=== PATIENT | female | born 1935 | race Hispanic/Latino ===

== ENCOUNTER 2018-12-04 15:35 | Emergency (ER) | payer MEDICARE, BC ==
--- NOTE | 2018-12-04 15:45 | ED PDOC ---
Arrival/HPI - General Time Seen by Provider: 12/04/18 15:37 Historian: Patient - History of Present Illness Narrative History of Present Illness (Text): 12/04/18 15:42 Patient is a 82 year old female whose past medical history includes spinal stenosis, who presents to the ED s/p mechanical fall which occurred prior to arrival. Patient was in the hospital when she tripped and fell. She denies any dizziness prior to and s/p mechanical fall. She also denies any LOC, and has feeling in all her extremities. Patient denies any headache, facial pain, nausea, vomiting, or any other complaints. Time/Duration: Prior to Arrival Symptom Onset: Sudden Activities at Onset: Light Context: Walking Past Medical History - Provider Review Nursing Documentation Reviewed: Yes - Cardiac Hx Pacemaker: No - Neurological Hx Paralysis: No - Hematological/Oncological Hx Blood Transfusions: No Hx Blood Transfusion Reaction: No - Musculoskeletal/Rheumatological Hx Musculoskeletal Disorders: Yes (SPINAL STENOSIS) - Psychiatric Hx Emotional Abuse: No Hx Physical Abuse: No Hx Substance Use: No - Anesthesia Hx Anesthesia Reactions: Yes (VOMITING) Hx Malignant Hyperthermia: No - Suicidal Assessment Feels Threatened In Home Enviroment: No Family/Social History - Physician Review Nursing Documentation Reviewed: Yes Family/Social History: No Known Family HX Hx Alcohol Use: Yes (OCCASIONAL) Hx Substance Use: No Allergies/Home Meds Allergies/Adverse Reactions: Allergies seasonal Allergy (Uncoded 12/04/18 15:43) ITCHING Home Medications: Home Meds Medication Instructions Recorded Confirmed Atenolol [Tenormin] 25 mg PO QAM 03/31/16 04/03/16 Levothyroxine [Synthroid] 25 mcg PO QAM 03/31/16 04/03/16 Omeprazole 40 mg PO QAM 03/31/16 04/03/16 Simvastatin 5 mg PO QPM 03/31/16 04/03/16 Review of Systems - Physician Review All systems were reviewed & negative as marked: Yes - Review of Systems Cardiovascular: absent: Syncope Gastrointestinal: absent: Nausea Neurological: absent: Headache, Dizziness Physical Exam Vital Signs Reviewed: Yes Temperature: Afebrile Blood Pressure: Normal Pulse: Regular Respiratory Rate: Normal Appearance: Positive for: Well-Appearing Mental Status: Positive for: Alert and Oriented X 3 - Systems Exam Head: Present: Normocephalic, Ecchymosis (lateral to right eyebrow). No: Tenderness (denies tenderness to palpation of echymosis of right lateral eyebrow) Pupils: Present: PERRL Extroacular Muscles: Present: EOMI Conjunctiva: Present: Normal Mouth: Present: Moist Mucous Membranes Neck: Present: Normal Range of Motion Respiratory/Chest: Present: Clear to Auscultation, Good Air Exchange. No: Respiratory Distress, Accessory Muscle Use Cardiovascular: Present: Regular Rate and Rhythm, Normal S1, S2. No: Murmurs Abdomen: No: Tenderness, Distention, Peritoneal Signs Back: Present: Normal Inspection Upper Extremity: Present: Normal Inspection. No: Cyanosis, Edema Lower Extremity: Present: Normal Inspection. No: Edema Neurological: Present: GCS=15, CN II-XII Intact, Speech Normal Skin: Present: Warm, Dry, Normal Color. No: Rashes Psychiatric: Present: Alert, Oriented x 3, Normal Insight, Normal Concentration Medical Decision Making ED Course and Treatment: 12/04/18 15:47 Impression: 82 year old female who experienced a mechanical fall prior to arrival to Emergency department. Plan: -- Patient will be discharged Prior Visits: Notes and results from previous visits were reviewed. Progress Notes: 12/04/18 15:47 Patient was offered a head CT but declined. Instructed patient to return to the ED if she experiences new or worsening symptoms. - Scribe Statement The provider has reviewed the documentation as recorded by the Scribesperanza Grey Provider Scribe Attestation: All medical record entries made by the Scribe were at my direction and personally dictated by me. I have reviewed the chart and agree that the record accurately reflects my personal performance of the history, physical exam, medical decision making, and the department course for this patient. I have also personally directed, reviewed, and agree with the discharge instructions and disposition. Disposition/Present on Arrival - Present on Arrival Any Indicators Present on Arrival: No - Disposition Have Diagnosis and Disposition been Completed?: Yes Diagnosis: Head injury, Eyebrow contusion Disposition: HOME/ ROUTINE Disposition Time: 15:43 Condition: GOOD Discharge Instructions (ExitCare): Minor Head Injury (DC), Eye Contusion (DC) Additional Instructions: HOLLEY VARGAS, thank you for letting us take care of you today. Your provider was Arielle Faith MD and you were treated for CODE STAR. The emergency medical care you received today was directed at your acute symptoms. If you were prescribed any medication, please fill it and take as directed. It may take several days for your symptoms to resolve. Return to the Emergency Department if your symptoms worsen, do not improve, or if you have any other problems. Please contact your doctor or call one of the physicians/clinics you have been referred to that are listed on the Patient Visit Information form that is included in your discharge packet. Bring any paperwork you were given at discharge with you along with any medications you are taking to your follow up visit. Our treatment cannot replace ongoing medical care by a primary care provider outside of the emergency department. Thank you for allowing the [facility] team to be part of your care today. If you had an X-Ray or CT scan: A Radiologist will review the ED reading if any change in treatment is needed we will contact you. If you had a blood, urine, or wound culture: It will take several days for the results, if any change in treatment is needed we will contact you. If you had an STI test: It will take 48 hours for the results. Please call after 1 week if you have not heard back.
[2018-12-04 15:48] VITALS: O2SAT 98; BMI 33.2
[2018-12-04 16:08] VITALS: BP 108/54; PULSE 87; RESP 16; TEMP 97.3
== END 2018-12-04 16:08 | disposition home or self-care (01) ==
LOC: ED 15:35
DX: S00.11XA Contusion of right eyelid and periocular area, initial encounter (principal); W01.0XXA Fall on same level from slipping, tripping and stumbling without subsequent striking against object, initial encounter; Y92.239 Unspecified place in hospital as the place of occurrence of the external cause